=== PATIENT | female | born 1940 | race Caucasian/White ===

== ENCOUNTER 2018-09-02 20:54 | Emergency (ER) | payer OTHER ==
[~2018-09-02] VITALS: Ht 167.6 cm; Wt 77.1 kg
[2018-09-02 21:34] VITALS: Ht 167.6 cm; Wt 77.1 kg
[2018-09-02] MEDS ORDERED: AMLODIPINE BESY10 M2 PO (22:27)
[2018-09-02] MEDS ORDERED: ATENOLOL50 MG PO (22:27)
[2018-09-02] MEDS ORDERED: MON10 PO (22:27)
[2018-09-02] MEDS ORDERED: PAXIL10 MG PO (22:28)
[2018-09-02] MEDS ORDERED: METFORMIN HCL850 MG PO (22:28)
[2018-09-02] MEDS ORDERED: NAMENDA10 M2 PO (22:29)
[2018-09-02] MEDS ORDERED: LASIX20 MG PO (22:29)
[2018-09-02] MEDS ORDERED: LIPI10 PO (22:31)
[2018-09-03 00:45] VITALS: BP 119/53
== END 2018-09-03 00:45 | disposition home or self-care (01) ==
LOC: ED 20:54
DX: S80.02XA Contusion of left knee, initial encounter (principal); S80.01XA Contusion of right knee, initial encounter; S09.8XXA Other specified injuries of head, initial encounter; M19.90 Unspecified osteoarthritis, unspecified site; I10 Essential (primary) hypertension; E11.9 Type 2 diabetes mellitus without complications; E78.00 Pure hypercholesterolemia, unspecified; F41.9 Anxiety disorder, unspecified; Z98.890 Other specified postprocedural states; Z88.0 Allergy status to penicillin; W19.XXXA Unspecified fall, initial encounter; Y93.89 Activity, other specified; Y92.89 Other specified places as the place of occurrence of the external cause; Y99.8 Other external cause status
CPT/HCPCS: Q0092

== ENCOUNTER 2019-01-13 11:53 | Inpatient (IN) | payer OTHER ==
[~2019-01-13] VITALS: Ht 167.6 cm; Wt 62.3 kg
[~2019-01-13 11:53] MED LIST: AMLODIPINE BESY10 M2 PO; ATENOLOL50 MG PO; GLU850; LASIX20 MG PO; LIPI10 PO; MON10 PO; NAMENDA10 M2 PO; PAXIL10 MG PO
--- NOTE | 2019-01-13 12:14 | NUR ---
PT BIB[place]ard FROM HOME AFTER BEING FOUND ON [place] [facility]LO[facility] THIS AM AT APPROX 1100AM, PER DTR, PT HAS WORSEING DEMENTIA AND SHE'S NORMALLY CONFUSED. PT TRANSFERRED TO [facility] WITH MILD MOANING, NO OBVIOUS DEFORMITY NOTED, NO LEG SHORTENING SEEN, PER DTR, SHE'S FALLEN BEFORE SO HER HIP HURTS NORMALLY WHEN MOVING IN BED. PT AWAKE, ALERT TO NAME, PLACE AND SITUATION, DISORIENTED TO TIME AND DAY. PT FOLLWS SIMPLE COMMNANDS AND REPORTS MILD PAIN 2/10 TO LEFT HIP AREA. SKIN W/D/I WITH RED BRUISE NOTED TO RT ELBOW. RESP EVEN AND UNLABORED, ON RA @98%. ABD ROUND/SOFT, NT TO PALPATION. PT DENIES ANY SOB OR CP, NO NV/V/D. INCONTINENT TO URINE NOTED, WEARING ADULTS BRIEFS. PER DTR WHO IS AT BEDSIDE, REPORTS THAT SHE HAD SET AN APPT FOR TOMMORROW FOR AN EVAULTION FOR POSSIBLE HOSPICE AND OR PALLIATIVE CARE. DTR IS REQUESTING FULL LAB WORK TO BE DONE HERE IN ER ALONG WITH [facility]. ADVISED THAT OUR ER MD WILL EVAULATE AND PERFORM NECESSARY TESTS INDICATED. SAFETY PRECATIONS IN PLACE,WILL CONT TO MONITOR CLOSELY. PT AFEBRILE, 138/59.
[2019-01-13 13:25] LABS: BASOPHIL % 0.3 % (0-2); PLATELET COUNT 270 x10^3mcL (130-400)
[2019-01-13 13:27] LABS: RED CELL DISTRIBUTION WIDTH 16.4 % (11.5-14.5)
--- NOTE | 2019-01-13 13:47 | NUR ---
PT INCONTINENT WITH URINE, IN AND OUT CATH DONE WITH STERILE TECHNIQUE, DTR AT BEDSIDE, PT TOLERATED FAIRLY. URINE COLLECTED AND SENT FOR ANALYSIS. IV SL TO RT FA, PERIAREA CARE DONE, ADULT BRIEF APPLIED.
[2019-01-13 13:48] LABS: CALCIUM 9.3 mg/dL (8.5-10.1); CARBON DIOXIDE 24.9 mmol/L (21-32); CHLORIDE SERUM 107 mmol/L (98-107); GLUCOSE SERUM 120 mg/dL (74-106); POTASSIUM SERUM 5.1 mmol/L (3.5-5.1); SODIUM SERUM 141 mmol/L (136-145)
[2019-01-13 13:52] LABS: ALKALINE PHOSPHATASE 89 U/L (46-116); ALT/SGPT 14 U/L (14-59); AST/SGOT 16 U/L (15-37); BILIRUBIN TOTAL 0.3 mg/dL (0.20-1.00); HDL CHOLESTEROL 40 mg/dL (40-60); LIPASE 241 IU/L (73-393); TOTAL PROTEIN, SERUM 7.3 g/dL (6.4-8.2); TRIGLYCERIDES 141 mg/dL (<150)
[2019-01-13 13:53] LABS: ALBUMIN 3.3 g/dL (3.4-5.0); CHOLESTEROL 110 mg/dL (<200); CHOLESTEROL/HDL RATIO 2.8
[2019-01-13 13:54] LABS: FREE T4 1.34 ng/dL (0.76-1.46); FREE THYROXINE INDEX 3.1 ug/dL (1.4-4.5); T4(THYROXINE) 8.5 ug/dL (4.7-13.3)
--- NOTE | 2019-01-13 14:00 | NUR ---
PT TO XRAY VIA [facility]YA.
[2019-01-13 14:08] LABS: T3 TOTAL 0.91 ng/mL
[2019-01-13 14:51] LABS: UA SPECIFIC GRAVITY <=1.005 (1.005-1.035); microscopic required? YES; urine erythrocyte NEGATIVE (NEGATIVE)
--- NOTE | 2019-01-13 15:11 | NUR ---
DR NIETO IN ROOM FOR EXAM.
[2019-01-13] MEDS ORDERED: SEROQUEL25 MG PO (15:41)
--- NOTE | 2019-01-13 16:20 | NUR ---
SPOKE WITH NAKUL FROM [facility], UPDATED HIM ON PT'S STATUS, LABS AND VITALS. PER THIS CONVERSATION, HE STATES PT WILL MOST LIKELY BE TRANSFERRED [place] [facility] [place] I REALTED THIS INFO TO DTR BUT REFUSES PT TO BE TRANSFERRED TO THAT HOSPITAL.
--- NOTE | 2019-01-13 17:04 | NUR ---
PT INCREASINGLY CONFUSED AND AGITATED, DR PARHAM INFORMED, MEDICATED ORDERED.
--- NOTE | 2019-01-13 17:04 | NUR ---
DR PARHAM AT BEDSIDE TO SPEAK WITH DTR REGARDING TRANSFER.
--- NOTE | 2019-01-13 18:10 | NUR ---
PT RESTLESS, MOANING WITH KIERAN LEG PAIN, MEDICATED ORDERED. DTR AT BEDSIDE.
[2019-01-13 19:20] LABS: AMPHETAMINE QUAL UR NONE DETECTED (See below)
--- NOTE | 2019-01-13 19:39 | NUR ---
PT CHANGED AT THIS TIME, CLEAN AND DRY AND PLACED IN A GOWN.
--- NOTE | 2019-01-13 21:30 | NUR ---
PT URINATED. CHANGED AT THIS TIME.
--- NOTE | 2019-01-13 21:45 | NUR ---
PTS DAUGHTER EDUCATED ON STATUS OF ROOM AND NEED FOR SITTER. VERBALIZED UNDERSTANDING.
--- NOTE | 2019-01-13 22:02 | NUR ---
WAS TOLD THAT ROOM IS BEING CLEANED.
--- NOTE | 2019-01-13 22:31 | NUR ---
REPORT CALLED AND GIVEN TO CONRAD GALAN.
--- NOTE | 2019-01-13 22:56 | NUR ---
Pt. received from ER via gurney accompanied by RN. Pt. resting in bed with eyes closed, arousable with verbal stimuli, a/o x2, no c/o pain, h/a or dizziness. No SOB and pt. on RA. Pt. is Tele #6 with B/P 132/59, a NSR at 73 with an elevated T Wave with palpable pulses on BLE and BUE and no edema noted. Pt. has no trouble swallowing with a good appepite and no weight loss, Pt. does not use dentures, eharing aids or glasses. Lung Sounds are CTA and pt. is on RA w/ O2 sat at 96%. Pt. last BM noted to be on 01/12 and bowel sounds normoactive. Pt. is incontinent at times both bowel and bladder, pt. last voided 01/13 and was normal. Pt. is bed fast, unable to get up or assist with transfer, has fallen within the last 3 months. Skin villalta, pt. has redness noted on bilateral heels, scattered ecchymosis noted on BUE, and a healing wound in the sacral region of the back. Pt. currently resting in bed, with family at bedside, call light placed within reach, bed set at lowest position, will continue to monitor.
--- NOTE | 2019-01-13 23:15 | NUR ---
Dressing on sacral wound changed, pt. tolerated procedure well. Pt. currently resting in bed, no signs of SOB or distress, call light placed within reach, will continue to monitor.
[2019-01-14 00:10] VITALS: BP 132/59
--- NOTE | 2019-01-14 03:11 | NUR ---
Pt. c/o of pain and is becomming restless as per caregiver at bedside. Medicated pt. w/ 2 Tylenol 325 mg PO. Will continue to monitor pt.
[2019-01-14 05:44] VITALS: BP 107/56
--- NOTE | 2019-01-14 06:41 | NUR ---
Pt. current resting in bed with caregiver at [facility]. As per family, day care attendant will leave at 7a and another caregiver to return at 1100. Sitter was at bedside until 0500. Pt. was restless at times throughout the night as per caregiver. Pt. mei, home med was restarted at the hospital and made q8h on-call, Dr. French. Pt. complained of pain once and medicated pt. with acetaminophen 325mg x2 and pt. tolerated it well. Pt. currently resting in bed, call light placed within reach, bed set at lowest position, will continue to monitor.
[2019-01-14 06:54] LABS: BASOPHIL % 0.6 % (0-2); PLATELET COUNT 227 x10^3mcL (130-400)
[2019-01-14 07:18] LABS: CALCIUM 8.8 mg/dL (8.5-10.1); CARBON DIOXIDE 25.5 mmol/L (21-32); CHLORIDE SERUM 106 mmol/L (98-107); CREATININE SERUM 0.8 mg/dL (0.6-1.0); GLUCOSE SERUM 105 mg/dL (74-106); MAGNESIUM 1.5 mg/dL (1.8-2.4); POTASSIUM SERUM 4.7 mmol/L (3.5-5.1); SODIUM SERUM 141 mmol/L (136-145)
--- NOTE | 2019-01-14 07:48 | NUR ---
RECEIVED PATIENT FROM CONRAD DUDLEY AND CONRAD GALAN. PATIENT IN BED, MILD COMPLAINTS OF PAIN DUE TO REPOSITIONING. SITTER AT BED, FEEDING PATIENT BREAKFAST. TOLERATING. WILL AWAIT FOR CARE TEAM TO COME IN AND SPEAK WITH PATIENT. CALL LIGHT IN REACH AT THIS TIME.
[2019-01-14 09:14] VITALS: BP 121/54
--- NOTE | 2019-01-14 10:12 | NUR ---
DR KERR AND DR CORRALES IN TO SPEAK WITH PATIENT AND TWO DAUGTHERS. SPOKE TO THEM AT LENGTH ABOUT PLAN OF CARE FOR TODAY, CONCERNS ADDRESSED. ORDERED CT SCAN OF HEAD, PT, AND SS FOR POSSIBLE HOSPICE PLACEMENT. SITTER AT BEDSIDE. CALL LIGHT IN REACH.
[2019-01-14 13:12] VITALS: BP 140/66
--- NOTE | 2019-01-14 13:40 | NUR ---
PATIENT SENT DOWN TO CT HEAD AND RETURNED TO BED. PATIENT ALSO WAS EVAL AND SEEN BY NADIRA CALI. CT HEAD RESULTS IN, DR KERR IN TO SPEAK WITH PATIENT AND FAMILY. TELENEURO ORDERED. WILL PREPARE FOR TELE NEURO.
--- NOTE | 2019-01-14 13:45 | NUR ---
CALLED TELENEURO FOR TELENEURO CONSULT. SPOKE WITH HEATHRE. SHE STATED TO SEND H&P TO FAX [phone]. TELENEURO MACHINE ALREADY SET UP IN PT'S ROOM.
--- NOTE | 2019-01-14 15:09 | NUR ---
DR. CORRALES, DR. KERR, AND DR CROWE IN PT'S ROOM AND SPOKE WITH PATIENT AND PT'S DAUGHTER REGARDING NEED FOR TRANSFER TO HIGHER LEVEL OF CARE. PT'S UBALDO STATED SHE WILL CALL HER SISTER AND WILL INFORM DR. CORRALES ON THEIR DECISION.
--- NOTE | 2019-01-14 15:38 | NUR ---
TELENEURO CONSULT COMPLETED. NEUROLOGIST CONSULT RECOMMENDS PATIENT TO BE SEEN BY NEUROGSURGEON. DR CORRALES AND DR KERR NOTIFIED. CARE TEAM SPOKE WITH FAMILY AND FAMILY AGREED TO TRANSFER TO HIGHER LEVEL OF CARE, TO [facility]. DIRECTOR PUBLIC POLICY NOTIFIED. PATIENT IN ROOM WITH FAMILY, CALL LIGHT IN REACH.
[2019-01-14 16:52] VITALS: BP 127/85
--- NOTE | 2019-01-14 18:17 | NUR ---
PATIENT IN BED AT THIS TIME. MODERATE COMPLAINTS OF L KNEE PAIN 09/15. PRN NORCO PO ADMINISTERED. WILL ENDORSE TO ONCOMING NURSE ABOUT TRANSFER TO HIGHER LEVEL OF CARE. DAUGHTER AT BEDSIDE. CALL LIGHT IN REACH AT THIS TIME.
[2019-01-14 20:04] VITALS: BP 128/57
--- NOTE | 2019-01-14 20:08 | NUR ---
PATIENT RECEIVED IN BED AWAKE,ALERT AND ORIENTED X2 ONLY, SPEECH CLEAR, MOOD TENSE, FAMILY AT BEDSIDE. BREATHING EVEN AND UNLABORED BS CLEAR DIMINISHED BASES, FOUND ON ROOM AIR SAT 95%,DENIED SOB. DENIED CHEST PAINS, HR=72BPM,TELE#6 SR, RHYTHM REGULAR. IV SITE NO SIGN OF INFILTRATION. NO OBVIOUS SIGN OF DISTRESS NOR PAIN. PATIENT AND FAMILY INFORMED ABOUT POC THIS SHIFT.SAFETY/FALL PRECAUTIONS MAINTAINED.WILL CONTINUE TO MONITOR.
--- NOTE | 2019-01-14 22:30 | NUR ---
PATIENT GETTING AGITATED AND VERBALIZING THAT SHE WANTED TO GET OOB AND LEAVE, WANTS HER SCD REMOVED ANDIT MAKES HER UNCOMFORTABLE, PATIENT INFORMED ABOUT ITS PURPOSE AND ACTION,REMOVED FOR NOW PER FAMILY REQUEST. INFORMED THEM THAT WE WILL TRY TO PLACED IT BACK LATER, AND THEY AGREED.WILL CONTACT DR JUAREZ FOR ANXIETY MED ORDER.
--- NOTE | 2019-01-14 23:06 | NUR ---
PATIENTT MEDICATED WITH XANAX FOR ANXIETY. WILL MONITOR EFFETIVENESS.
--- NOTE | 2019-01-15 00:29 | NUR ---
PATIENT CALMER THIS TIME, TURNED AND REPOSITIONED,INCONTINENT OF UA CLENED AND KEPT DRY, OPTIFOAAM CHANGED.
--- NOTE | 2019-01-15 02:18 | NUR ---
PER BIOMECHANICAL ENGINEER ,PATIENT IS GETTING ANXIOUS AGAIN, CHECKED WAS TEMPTING TO REMOVE LINE, PAGED DR GAMBINO AND RESPONDED BACK, INFORMED HIM ABOUT ABSERVATION. AWAITING ORDER.
--- NOTE | 2019-01-15 02:49 | NUR ---
MEDICATED WITH ATIVAN 1 MG IVP FOR ANXIETY. WILL MONITOR EFFECTIVENESS.
--- NOTE | 2019-01-15 05:58 | NUR ---
INCONTINENT OF URINE, CLEANED AND KEPT DRY. TURNED THIS TIME.
[2019-01-15 06:08] VITALS: BP 139/58
--- NOTE | 2019-01-15 06:32 | NUR ---
PATIENT STARTED RESTING AND SLEEPING AFTER ATIVAN IVP GIVEN, WAS TURNED Q2HRS, REMAINED CONFUSED AND DISORIENTED. CAREGIVER AT BEDSIDE ALL NIGHT. SAFETY/FALL PRECAUTIONS MAINTAINED. WILL ENDORSE CONTINUITY OF CARE TO INCOMING NURSE.
[2019-01-15 06:36] LABS: BASOPHIL % 0.5 % (0-2); PLATELET COUNT 240 x10^3mcL (130-400)
[2019-01-15 06:40] LABS: CALCIUM 8.4 mg/dL (8.5-10.1); CARBON DIOXIDE 21.9 mmol/L (21-32); CHLORIDE SERUM 110 mmol/L (98-107); CREATININE SERUM 0.6 mg/dL (0.6-1.0); GLUCOSE SERUM 86 mg/dL (74-106); MAGNESIUM 1.7 mg/dL (1.8-2.4); PHOSPHOROUS 3.3 mg/dL (2.5-4.9); POTASSIUM SERUM 4.2 mmol/L (3.5-5.1); SODIUM SERUM 142 mmol/L (136-145)
[2019-01-15 06:49] LABS: RED CELL DISTRIBUTION WIDTH 16.8 % (11.5-14.5)
--- NOTE | 2019-01-15 07:34 | NUR ---
RECEIVED PATIENT FROM CONRAD HERNDON. PATIENT SEEN SLEEPING IN BED. NO SIGNS OF PAIN, DISCOMFORT, OR AGITATION AT THIS TIME. SITTER AT BEDSIDE FOR THIS AM. DR WILLIAMSHIRA IN TO SEE PATIENT, ADJUSTED MEDICATIONS. WILL AWAIT FOR CARE TEAM TO COME EVALUATE AND WILL WAIT FOR REPEAT CT HEAD TODAY. CALL LIGHT IN REACH.
[2019-01-15 09:00] VITALS: BP 138/68
--- NOTE | 2019-01-15 12:10 | NUR ---
DAUGHTERS AND CAREGIVER AT BEDSIDE. UPDATED FAMILY ABOUT PLAN OF CARE AND STILL WAITING FOR TRANSFER. ALL QUESTIONS ADDRESSED AT THIS TIME. CALL LIGHT IN REACH.
[2019-01-15 16:21] VITALS: BP 138/63
--- NOTE | 2019-01-15 17:13 | NUR ---
NOTIFIED BY LAB THAT PATIENT IS POSITIVE FOR E COLI AND MDRO IN THE URINE. NOTIFIED CHARGE NURSE TRAN AND DR CORRALES. ALSO BOTH AWARE THAT E COLI IS SUSCEPTIBLE TO PO LEVAQUIN. WILL INFORM FAMILY MEMBER AT THIS TIME AND PLACE PATIENT ON CONTACT ISOLATION.
--- NOTE | 2019-01-15 18:19 | NUR ---
SPOKE WITH PATIENT AND FAMILY ABOUT POSITIVE CULTURE OF E COLI. TAUGHT FAMILY ABOUT CONTACT PRECAUTIONS AND QUESTIONS ADDRESSED. FAMILY VERBALIZED UNDERSTANDING OF DONNING AND REMOVING GOWN AND GLOVES FOR PATIENT. STILL AWAITING TRANSFER TO HIGHER LEVEL OF CARE. WILL ENDORSE TO ONCOMING NURSE. CALL LIGHT IN REACH, FAMILY AT BEDSIDE.
[2019-01-15 20:00] VITALS: BP 132/59
--- NOTE | 2019-01-15 20:00 | NUR ---
PATIENT RECEIVED LYING IN BED AWAKE,ALERT AND ORIENTED X2, GET PARANOID AT TIMES, SPEECH CLEAR, CONFUSED AND DISORIENTED. BREATHING EVEN AND UNLABORED BS CLEAR DIMINISHED BASES, FOUND ON ROOM AIR SAT 96%. DENIED CHEST PAINS, HR=68BPM, TELE#6 SR. IV SITE LFA PATENT AND INTACT SITE CLEAR, NO SIGN OF INFILTRATION. PATIENT DENIED PAIN THIS TIME. FAMILY AT BEDSIDE, INFORMED AND UPDATED ABOUT TX TO HLOC PLAN. SUPINE THIS TIME, INFORMED PATIENT AND FAMILY ABOUT TURNING REGIMEN. SAFETY/FALL PRECAUTIONS OBSERVED. CIONTACT ISOLATION FOR ESBL/MDRO UA OBSERVED. WILL CONTIBNUE TO MONITOR.
--- NOTE | 2019-01-15 21:06 | NUR ---
SCHEDULED MEDS ADMINISTERED THIS TIME, PATIENT AND FAMILY INFORMED ABOUT EACH MEDS ACTIONS AND PURPOSE PRIOR. RAISED HEAD OF BED UP DURING ADMINISTRATION, TOOK PILLS WELL.
--- NOTE | 2019-01-15 22:10 | NUR ---
DR GAMBINO PAGED GATED, INFORMED ABOUT MAG LEVEL OF 1.7. NOT REPLACED.
--- NOTE | 2019-01-15 23:27 | NUR ---
PATIENT GETTING ANXIOUS AND AGITATED AGAIN,ATTEMPTING TO REMOVED IV.PAGE GATED DR GAMBINO TO INFORMED HIM OF ABOVE.
--- NOTE | 2019-01-15 23:42 | NUR ---
MAG OXIDE 1 TAB PO GIVEN FOR MAG LEVEL 1.7, ATIVAN 0.5 MG IVP GIVEN FOR ANXIETY AND AGITATION. WILL RE-ASSESS EFFECTIVENESS.
[2019-01-16 05:03] VITALS: BP 145/63
--- NOTE | 2019-01-16 05:20 | NUR ---
BLOOD SUGAR WAS 64, REPEATED WAS 66, PATIENT DROWSYPROTOCOL INITIATED, D50 1 AMP ADMINISTERE IVP, WILL LATRICE GAMBINO.
--- NOTE | 2019-01-16 06:03 | NUR ---
CHRIS FROM [facility] TRANSFER DEPARTMENT CALLED AND UPDATED WITH TRANSFER PLAN, STATED THAT NO AVAILABLE TRANFER ACCEPTING PHYSICIAN YET. DR GAMBINO AND CHARGE KATHI HOLT MADE AWARE.
[2019-01-16 06:11] LABS: BASOPHIL % 0.7 % (0-2); PLATELET COUNT 212 x10^3mcL (130-400)
[2019-01-16 06:18] LABS: CALCIUM 8.5 mg/dL (8.5-10.1); CARBON DIOXIDE 25.8 mmol/L (21-32); CHLORIDE SERUM 109 mmol/L (98-107); CREATININE SERUM 0.6 mg/dL (0.6-1.0); GLUCOSE SERUM 227 mg/dL (74-106); MAGNESIUM 1.7 mg/dL (1.8-2.4); PHOSPHOROUS 2.9 mg/dL (2.5-4.9); POTASSIUM SERUM 3.6 mmol/L (3.5-5.1); SODIUM SERUM 143 mmol/L (136-145)
--- NOTE | 2019-01-16 06:18 | NUR ---
PATIENT SLEPT OFF AND ON DURING THE SHIFT, WAS TURNED Q 2HRS AND CLEANED, KEPT DRY. NO COMPLAINTS MADE. BLOOD SUGAR WAS ON THE LOW 60'S THIS AM,D50 GIVEN AND RE CHECKED WAS 174 MORE ALERT. IV SITE TO RT HAND PATENT AND INTACT, STOCKENETT APPLIED TO PREVENT PATIENT FROM PULLING LINE. SAFETY/FALL PRECAUTIONS MAINTAINED. CONTACT ISOLATION FOR E-COLI/MDRO UA OBSERVED AND MAINTAINED. WILL ENDORSE CONTINUITY OF CARE TO INCOMING NURSE.
[2019-01-16 07:11] LABS: RED CELL DISTRIBUTION WIDTH 16.4 % (11.5-14.5)
--- NOTE | 2019-01-16 07:19 | NUR ---
BEDSIDE HANDS OFF AND INTRODUCTION PERFORMED WITH INCOMING NURSE CHANTAL/ALLAN.
--- NOTE | 2019-01-16 08:00 | NUR ---
RECEIVED REPORT FROM AT RISK PARAPROFESSIONAL NURSE. PT LYING IN BED SITTER AT BEDSIDE. IV ON R HAND PATENT, INTACT, NO REDNESS OR PAIN NOTED. DENIES ANY PAIN AT THIS TIME. A&O X 3 EPISODES OF CONFUSION. STABLE IN NO DISTESS AT THIS TIME. BED IN LOW POSITION. SAFETY PRECAUTIONS IN PLACE. ALL QUESTIONS AND CONCERNS ADDRESSED. WILL CONTINUE TO MONITOR.
[2019-01-16 09:00] VITALS: BP 131/63
--- NOTE | 2019-01-16 10:00 | NUR ---
ADMINISTERED PRESCRIBED MED TO PT. NO ADVERSE EFFECTS NOTED. PT TOLERATED WELL. WILL CONTINUE TO MONITOR.
[2019-01-16 10:25] VITALS: Ht 167.6 cm; Wt 62.3 kg
--- NOTE | 2019-01-16 11:30 | NUR ---
GLUCOSE 64 OFFERED APPLE JUICE TO PT. NO INSULIN COVERAGE NEEDED AT THIS TIME DAGMAR SLIDING SCALE. ALL NEEDS ATTENDED TO AT THIS TIME.
[2019-01-16 12:40] VITALS: BP 106/61
--- NOTE | 2019-01-16 12:45 | NUR ---
PT SITTING UP IN BED EATING LUNCH. TOLERATING DIET WELL. DAUGHTER AND VEHICLE MONITOR TECHNICIAN AT BEDSIDE. NO APPARENT DISTRESS NOTED WILL CONTINUE TO MONITOR.
--- NOTE | 2019-01-16 13:16 | NUR ---
PATIENT C/O BILATERAL LEG PAIN AT THIS TIME. PATIENT MEDICATED WITH TYLENOL. PATIENT TOLERATED MEDICATION WELL. NO APPARENT ADVERSE EFFECTS NOTED. ALL NEEDS ATTENDED TO. WILL CONTINUE TO MONITOR
--- NOTE | 2019-01-16 13:32 | NUR ---
PHYSICAL THERAPY DAILY NOTES CO-SIGN All documentation done by the Tier Truck Driver for 01/16/19 has been reviewed. I agree with the documentation. Reviewed/Co-Signed by: Candelaria Tran PT Documentation Done by: PATRICIO FUNG PTA
--- NOTE | 2019-01-16 14:30 | NUR ---
PT AGITATED AT THIS TIME. ADMINISTERED ATIVAN IVP. NO ADVERSE REACTIONS NOTED. WILL CONTINUE TO MONITOR.
--- NOTE | 2019-01-16 16:30 | NUR ---
BLOOD GLUCOSE LEVEL 97 NO INSULIN COVERAGE NEEDED PER SLIDING SCALE. WILL CONTINUE TO MONITOR.
[2019-01-16 18:44] VITALS: BP 118/45
--- NOTE | 2019-01-16 19:02 | NUR ---
PT LYING IN BED IN NO APARENT DISTRESS IV INFUSING ON RIGHT HAND, PATENT, NO REDNESS OR EDEMA NOTED. ALL QUESTIONS AND CONCERNS ADDRESSED. CALL LIGHT WITHIN REACH ENDORSING CARE TO NIGHT NURSE.
--- NOTE | 2019-01-16 19:15 | NUR ---
RECIEVED PT RESTING IN BED WITH NO ACUTE DISTRESS NOTED AT THIS TIME, FAMILY AT BEDSIDE, ASSESMENT PERFORMED AT THIS TIME, PT IS A/OX2 TO PERSON AND SITUATION, PT DENIESS ARREDONDO OR DIZZINESS, PT DENIES SOB OR PAIN, TELE 6 NSR, IV TO THE R HAND INFUSING NS AT 50 ML PER HOUR, AIR MATRESS IN PLACE, SAFETY PRECAUTIONS IN PLACE, WILL CONTINUE TO MONITOR
[2019-01-16 20:30] VITALS: BP 121/53
--- NOTE | 2019-01-16 22:10 | NUR ---
PT RESTING IN BED WITH NO ACUTE DISTRESS, NO SOB OR PAIN NOTED AT THIS TIME, SITTER AT BEDSIDE, RESPIRATIONS EVEN AND UNLABORED, SAFETY PRECAUTIONS IN PLACE, WILL CONTINUE TO MONITOR
--- NOTE | 2019-01-17 00:30 | NUR ---
PT RESTING COMFORTABLY, NO ACUTE DISTRESS AT THIS TIME, SITTER AND BANKING ANALYST AT BEDSIDE, SAFETY PRECAUTIONS IN PLACE, WILL CONTINUE TO MONITOR
--- NOTE | 2019-01-17 05:00 | NUR ---
PT RESTED COMFOTABLY THROUGH THE NIGHT WITH NO ACUTE DISTRESS, PT CAREGIVER AND SITTER REMAINED AT BEDSIDE THROUGH SHIFT, PT HAD NO EPISODES OF SOB OR PAIN THROUGH EVENING, ALL PT NEEDS ATTENDED TO SAFETY PRECAUTIONS IN PLACE, WILL CONTINUE TO MONITOR
--- NOTE | 2019-01-17 05:30 | NUR ---
PT BLOOD SUGAR 72, ORANGE JUICE PROVIDED, PT IS ASYMPTOMATIC. WILL CONTINUE TO MONITOR
[2019-01-17 05:43] VITALS: BP 121/57
[2019-01-17 06:44] LABS: CALCIUM 8.2 mg/dL (8.5-10.1); CARBON DIOXIDE 25.4 mmol/L (21-32); CHLORIDE SERUM 112 mmol/L (98-107); CREATININE SERUM 0.8 mg/dL (0.6-1.0); GLUCOSE SERUM 84 mg/dL (74-106); MAGNESIUM 1.8 mg/dL (1.8-2.4); PHOSPHOROUS 3.6 mg/dL (2.5-4.9); SODIUM SERUM 144 mmol/L (136-145)
[2019-01-17 07:15] LABS: BASOPHIL % 0.7 % (0-2); PLATELET COUNT 195 x10^3mcL (130-400)
--- NOTE | 2019-01-17 07:20 | NUR ---
RECEIVED REPORT FROM NIGHT NURSE PT ASLEEP IN NO APARENT DISTRESS. BREATHING EQUAL AND UNLABORED. ASSESSED AND DOCUMENTED.IV R HAND INFUSING 50 ML INTACT, NO REDNESS OR SWELLING NOTED. SITTER AND RN LIAISON AT BEDSIDE . SAFETY PRECAUTIONS IN PLACE. WILL CONTINUE TO MONITOR.
[2019-01-17 07:31] LABS: RED CELL DISTRIBUTION WIDTH 16.1 % (11.5-14.5)
[2019-01-17 09:10] VITALS: BP 101/50
--- NOTE | 2019-01-17 09:34 | NUR ---
PT LYING IN BED TALKING WITH CAREGIVER IN NO APPARENT DISTRESS. PT DENIES PAIN AT THIS TIME. SCHEDULED MEDS GIVEN PER JUN. PT TOLERATED WELL NO ADVERSE AFFECTS NOTED. BED IN LOW POSITION ALL QUESTIONS AND CONCERNS ADDRESSED. WILL CONTINUE TO MONITOR.
--- NOTE | 2019-01-17 12:17 | NUR ---
PT SITTING UP WITH PT. FAMILY AT BEDSIDE. BLOOD SUGAR 66 OFFERED APPLE JUICE. PT IN NO APPARENT DISTRESS. ALL NEEDS MET AT THIS TIME. WILL CONTINUE TO MONITOR.
--- NOTE | 2019-01-17 12:52 | NUR ---
PT SERVED LUNCH TOLERATING DIET WELL. CAREGIVER AT BEDSIDE. ALL NEEDS ATTENDED TO. WILL CONTINUE TO MONITOR.
[2019-01-17 13:52] VITALS: BP 107/55
--- NOTE | 2019-01-17 14:24 | NUR ---
PT LYING IN BED TALKING WITH CAREGIVER. PT IN NO APPARENT DISTRESS. ADMINISTERED SCHEDULED MED PER JUN. PT TOLERATED WELL NO ADVERSE AFFECTS NOTED. WILL CONTINUE TO MONITOR. CALL LIGHT WITHIN REACH BED IN LOW POSITION.
--- NOTE | 2019-01-17 16:20 | NUR ---
PT LYING IN BES REASTING. CAREGIVER AT BEDSIDE. BLOOD SUGAR CHECK 78 NO INSULIN NEEDED PER SLIDING SCALE. ALL QUESTION AND CONCERNS ADDRESSED. WILL CONTINUE TO MONITOR.
[2019-01-17 18:43] VITALS: BP 112/50
--- NOTE | 2019-01-17 18:46 | NUR ---
PT SITTING IN BED WITH AT BEDSIDE TALKING. IV INFUSING PATENT AND INTACT NO EDEMA OR REDNESS NOTED. BREATHING UNLABORED EQUAL CHEST RISE 97% ON RA. ALL QUESTIONS AND CONCERNS ADDRESSED AT THIS TIME. BED IN LOW POSITION. WILL ENDORSE CARE TO SKATE HOP NURSE.
--- NOTE | 2019-01-17 19:20 | NUR ---
IV ACCIDENTLY PULLED OUT CATHETER INTACT, NO REDNESS OR SWELLING NOTED. ALL NEEDS ATTENDED TO.ASSET PROTECTION ASSISTANT NURSE MADE AWARE.
--- NOTE | 2019-01-17 19:30 | NUR ---
PT RECEIVED FROM DAY NURSE. PT RESTING IN BED AT THIS TIME. DENIES PAIN OR DISCOMFORT. A/O X3, REORIENTED TO SITUATION. TELE 6, NSR, DENIES CP, NV, DIZZINESS, OR PALPATATIONS. PALPABLE PULSES, EDEMA NOTED TO BLE, ELEVATED WITH PILLOWS. BREATHING E/U ON RA. DENIES SOB. PT BED BOUND, TURNING AND REPOSITIONING Q2. ULCER NOTED TO SACRUM, COVERED WITH OPTIFOAM CDI. ECCYMOSIS NOTED TO BUE AND BLE. NO IV ACCESS AT THIS TIME. BE AT LOWEST POSITION. CALL LIGHT WITHIN REACH. WILL CONTINUE TO MONITOR.
[2019-01-17 20:50] VITALS: BP 118/61
--- NOTE | 2019-01-18 | NUR ---
PT RESTING IN BED AT THIS TIME. DENIES PAIN OR DISCOMFORT AT THIS TIME. BREATHING E/U ON RA. NO SIGNS OF ACUTE DISTRESS AT THIS TIME. BED AT LOWEST POSITION. CALL LIGHT WITHIN REACH. WILL CONTINUE TO MONITOR.
--- NOTE | 2019-01-18 03:11 | NUR ---
PT COMPLAINING OF 6/10 L HIP PAIN. MEDICATED WIT PRN NORCO. WILL CONTINUE TO MONITOR.
[2019-01-18 05:38] VITALS: BP 144/67
--- NOTE | 2019-01-18 06:20 | NUR ---
PT RESTING IN BED AT THIS TIME. DENIES PAIN OR DISCOMFORT. BREATHING E/U ON RA. ALL NEEDS AND CONCERNS ADDRESSED THIS SHIFT. BED AT LOWEST POSITION. CALL LIGHT WITHIN REACH. WILL ENDORSE TO DAY NURSE.
--- NOTE | 2019-01-18 07:05 | NUR ---
RECEIVED REPORT FROM NIGHT NURSE PT LYING IN BED ASLEEP IN NO APPARENT DISTRESS. CHEST RISE EQUAL AND UNLABORED. SITTER AT BEDSIDE AND SAFETY PRECAUTIONS IN PLACE. ALL NEEDS MET AT THIS TIME. WILL CONTINUE TO MONITOR.
--- NOTE | 2019-01-18 09:00 | NUR ---
PT LYING IN BED AWAKE IN NO APARENT DISTRESS. TOLERATED BREAKFAST WELL. ALL QUESTIONS AND CONCERNS ADDRESSED AT THIS TIME. LAUNDRY TECHNICIAN AT BEDSIDE. WILL CONTINUE TO MONITOR.
[2019-01-18 09:22] VITALS: BP 129/53
--- NOTE | 2019-01-18 12:53 | NUR ---
PT LYING IN BED TALKING WITH CAREGIVER. BLOOD GLUCOSE 78. NO INSULIN NEEDED PER SLIDING SCALE. PT DENIES ANY PAIN AT THIS TIME. SAFETY PRECAUTIONS FOLLOWED. CAREGIVER AT BEDSIDE WILL CONTINUE TO MONITOR.
--- NOTE | 2019-01-18 13:02 | NUR ---
SPOKE WITH DR KERR AND CLARIFIED ORDER FOR DC TO [facility]. PER DR KERR TO CANCEL ORDER TO DC TO [facility] AND ENTER ORDER FOR SNF. PER DR KERR PATIENT CAN BE DC TO SNF WHEN BED AVAILABLE. SPOKE WITH TESSY FROM CASE MANAGEMENT AND SHE SAID THAT IF NO SNF CALLED BACK YET WITH RE: ACCEPTING PATIENT, CASE MANAGEMENT WILL FOLLOW UP TOMORROW. RECEIVED CALL FROM LAZARA AT [facility] WHO REQUESTED UPDATES ON SNF TRANSFER. LAZARA MADE AWARE OF NO SNF AVAILABLE AT THIS TIME. ATTENDING NURSE CHANTAL MADE AWARE.
--- NOTE | 2019-01-18 14:55 | NUR ---
PT UP IN BED TALKING WITH DAUGHTER AND AT BEDSIDE. ALL NEEDS ATTENDED TO. WILL CONTINUE TO MONITOR.
[2019-01-18 15:30] VITALS: BP 111/53
--- NOTE | 2019-01-18 16:54 | NUR ---
ADMINISTERED ATIVAN IVP PER DR ORDERS FOR AGITATION. DAUGHTER AND AT BEDSIED. ALL SAFETY PRECAUTIONS IN PLACE. WILL CONTINUE TO MONITOR.
--- NOTE | 2019-01-18 17:56 | NUR ---
PT SITTING IN BED EATING DINNER AND TALKING WITH FAMILY. TOLERATING DIET WELL IN NO APPARENT DISTRESS. WILL CONTINUE TO MONITOR.
[2019-01-18 18:26] VITALS: BP 115/58
--- NOTE | 2019-01-18 18:31 | NUR ---
PT LYING IN BED IN NO APARENT DISTRESS. PT DENIES PAIN OR SOB. IV INTACT INFUSING NO EDEMA OR REDNESS NOTED. ALL NEEDS ATTENDED TO WILL ENDORSE CARE TO PEST LOCATOR NURSE.
--- NOTE | 2019-01-18 19:10 | NUR ---
REPORT RECEIVED FROM DAY SHIFT RN. PATIENT WAS SEEN RESTING COMFORTABLY IN BED. ASLEEP, BUT EASILY AROUSBLE BY VERBAL STIMULI. DAUGHTER, KWASI, AT BEDSIDE. NO DISTRESS NOTED. BREATHING EVEN AND UNLABORED ON ROOM AIR. NO SOB OR RESP DISTRESS NOTED. IV TO THE RFA INFUSING WELL. PATENT AND INTACT. NO REDNESS OR SWELLING NOTED. TELE#6, NSR. DENIES CHEST PAIN/PRESSIRE. NO C/O PAIN. ECCYMOSIS NOTED TO BUE AND BLE. DISCOLORATION TO BILATERAL HEELS. OPIFOAM IN PLACE TO SACRAL-COCCYX, CDI. CONTACT PRECAUTIONS IN PLACE. BED IS LOCKED AND IN THE LOWEST POSITION. SIDE RAILS UP X2. CALL LIGHT IS WITHIN REACH. WILL CONTINUE TO MONITOR.
[2019-01-18 20:51] VITALS: BP 131/64
--- NOTE | 2019-01-18 23:23 | NUR ---
C/O 7/10 LEG PAIN BILATERALLY. PRN NORCO ADMINISTERED PRESCRIBED. MED EDUCATION GIVEN. NO DISTRESS NOTED. NO S/S OF ASPIRATION. CAREGIVER AND SITTER AT BEDSIDE. BREATHING EVEN AND UNLABORED ON ROOM AIR. SAFETY MEASURES IN PLACE. CALL LIGHT IS WITHIN REACH. WILL CONTINUE TO MONITOR.
--- NOTE | 2019-01-19 01:40 | NUR ---
RESTING IN BED WITH EYES CLOSED. NO DISTRESS NOTED. BREATHING EVEN AND UNLABORED ON ROOM AIR. NO SOB OR RESP DISTRESS NOTED. NO S/S OF PAIN NOTED. IVF INFUSING WELL. SAFETY MEASURES IN PLACE. CAREGIVER AT BEDSIDE. CALL LIGHT IS WITHIN REACH. WILL CONTINUE TO MONITOR.
[2019-01-19 04:37] VITALS: BP 117/52
--- NOTE | 2019-01-19 05:56 | NUR ---
BS 71. WILL GIVE WITH JUICE. NO DISTRESS NOTED. DR CORRALES IN TO SEE PATIENT. UPDATED DR ON SNF PLACEMENT STATUS.
--- NOTE | 2019-01-19 06:05 | NUR ---
RESTED IN LONG INTERVALS THROUGHOUT THE NIGHT. NO ACUTE CHANGES NOTED. BREATHING EVEN AND UNLABORED ON ROOM AIR. NO SOB NOTED. DENIES CHEST PAIN/PRESSURE. C/O PAIN X1. MEDICATED WITH NORCO WITH GOOD RELIEF. IVF INFUSING WELL. PATENT AND INTACT. FLUSHED WELL. SITTER AT BEDSIDE. COMFORT AND SAFETY MEASURES IN PLACE. CALL LIGHT IS WITHIN REACH. WILL ENDORSE CARE TO DAY SHIFT RN.
--- NOTE | 2019-01-19 07:30 | NUR ---
RECEIVED PATIENT RESTING IN BED AWAKE/ALERT, DOESN'T WANT NURSE TO TOUCH OR LIFT INFORM PATIENT NEED TO ASSESS PATIENT AND MAKING SURE EVERYTHING OKAY. TELE #6 NSR W/ HR 60 NOTED, IV TO RFA INTACT AND INFUSING, NOTED BLOOD STAIN ON DRESSING NO LEAKING NOTED. SITTER REMAIN AT BEDSIDE.
[2019-01-19 10:04] VITALS: BP 115/58
--- NOTE | 2019-01-19 10:10 | NUR ---
PATIENT RESTING IN BED AWAKE/ALERT CONFUSED KEEP ASKING "WHY I AM BEING SCAN" EXPLAINED TO PATIENT. NO DISTRESS NOTED, NO COMPLAIN. ALL PO MEDS ADMINISTERED W/O DIFFICULTY SWALLOWING, LEVAQIN IVPB INFUSING TO RFA. CONT TO MONITOR.
--- NOTE | 2019-01-19 11:30 | NUR ---
PATIENT BACK FROM CT VIA BED, AWAKEN, NO COMPLAIN. BS 64 ASYMPTOMATIC. APPLE JUICE GIVEN, CONT TO MONITOR. CAREGIVER REMAIN AT BEDSIDE, CALL LIGHT IN REACH.
--- NOTE | 2019-01-19 12:50 | NUR ---
PATIENT SAT UP IN BED CAREGIVER ASSISTING PATIENT WITH LUNCH, CHECK BS 78, CONT TO MONITOR. FAMILY MEMBERS REMAIN AT BEDSIDE.
--- NOTE | 2019-01-19 13:50 | NUR ---
PATIENT RESTING IN BED CALM, FORGETFUL. DR. SILVA CAME IN TO SEE PATIENT PATIENT STATED SLEEPING BETTER. SEROQUEL PO ADMINISTERED, NO PROBLEM. DRESSING TO RFA IV SITE CHANGED DUE TO OLD BLOOD STAIN PATIENT GOT BOTHER BY IT. PT'S AND CAREGIVER REMAIN AT BEDSIDE.
--- NOTE | 2019-01-19 15:02 | NUR ---
SPOKE TO CAREGIVER AT BEDSIDE PER CAREGIVER SWITCH OUT AT 5PM WITH OTHER CAREGIVER, DISCUSS TO DTChristina VILLALPANDO. MOBILE UI DEVELOPER AT BEDSIDE PROVIDE BRITT CARE. PT PATRICIO WILL WORK WITH PATIENT, UPDATE CT LT HIP NO FRACTURE OR DISLOCATION NOTED.
[2019-01-19 16:50] VITALS: BP 149/56
--- NOTE | 2019-01-19 18:36 | NUR ---
INCONTINENT CARE PROVIDED, Z-GUARD APPLIED TO PERIANEAL AREA. REPOSITION. BILAT HEEL FLOATED. FAMILY MEMBERS BACK TO ROOM. CONT TO MONITOR.
--- NOTE | 2019-01-19 19:30 | NUR ---
RECEIVED PT FROM DAY SHIFT RN. PT AAOX4 AT THIS TIME. PT SEEMS FORGETFUL AT TIMES. DENIES ARREDONDO/DIZZINESS. BREATHING EVEN AND UNLABORED ON RA, NO SOB NOTED. TELE #6 SR HR 66. PT DENIES CHEST PAIN/PRESSURE. ABD SOFT/ROUND ACTIVE BOWEL SOUNDS. DENIES ABD PAIN/N/V. IV LFA PATENT, INFUSING WELL. SEE SKIN ASSESSMENT. CONTACT ISOLATION. FAMILY AT BEDSIDE. CALL BUTTON WITHIN REACH. SAFETY PRECAUTIONS IN PLACE. WILL CONTINUE TO MONITOR.
[2019-01-19 19:36] VITALS: BP 127/62
--- NOTE | 2019-01-20 | NUR ---
PT AWAKE DENIES ANY PAIN NO SIGNS OF DISTRESS. BREATHING EVEN AND UNLABORED. CAREGIVER AT BEDSIDE, CALL BUTTON WITHIN REACH. SAFETY PRECAUTIONS IN PLACE. WILL CONTINUE TO MONITOR.
--- NOTE | 2019-01-20 03:30 | NUR ---
PT RESTING. BREATHING EVEN AND UNLABORED. NO SIGNS OF DISTRESS NOTED. CALL BUTTON WITHIN REACH. SAFETY PRECAUTIONS IN PLACE. WILL CONTINUE TO MONITOR.
[2019-01-20 04:19] VITALS: BP 132/61
--- NOTE | 2019-01-20 04:55 | NUR ---
PT SLEPT MOST OF THE NIGHT WITH NO SIGNS OF DISTRESS NOTED. PT BREATHING EVEN AND UNLABORED ON RA, NO SOB NOTED. PT IV PATENT, INFUSING WELL. NO SIGNS OF INFILTRATION. TURN AND REPOSITIONED EVERY 2HRS AND NEEDED. CAREGIVER AT BEDSIDE. PT DENIES ANY PAIN/DISCOMFORT. MEDICATED PER EMAR. CALL BUTTON WITHIN REACH. SAFETY PRECAUTIONS IN PLACE. CONTACT ISOLATION. WILL CONTINUE TO MONITOR AND ENDORSE CARE TO DAY SHIFT RN.
[2019-01-20 06:13] LABS: BASOPHIL % 0.4 % (0-2); PLATELET COUNT 199 x10^3mcL (130-400)
[2019-01-20 06:14] LABS: RED CELL DISTRIBUTION WIDTH 16.4 % (11.5-14.5)
[2019-01-20 06:20] LABS: CALCIUM 8.6 mg/dL (8.5-10.1); CARBON DIOXIDE 24.7 mmol/L (21-32); CHLORIDE SERUM 110 mmol/L (98-107); GLUCOSE SERUM 90 mg/dL (74-106); MAGNESIUM 1.6 mg/dL (1.8-2.4); PHOSPHOROUS 3.4 mg/dL (2.5-4.9); POTASSIUM SERUM 4.1 mmol/L (3.5-5.1); SODIUM SERUM 143 mmol/L (136-145)
--- NOTE | 2019-01-20 07:15 | NUR ---
RECEIVED PT FROM WATCH BAND ASSEMBLER. PT AWAKE, ALERT. A/OX3 WITH CONFUSION NOTED. PT ON ROOM AIR WITH NO RESP DISTRESS NOTED. PT ON TELE 6, DENIES CHEST PAIN AT THIS TIME. IV ACCESS LFA, CDI INFUSING NS AT 50ML/HR. PERIPHERAL PULSES PALPABLE, NO EDEMA NOTED AT THIS TIME. ACTIVE BS NOTED, PT DENIES ISSUES WITH ELIMINATION. SAFETY MEASURES IN PLACE, BED ALARM ON. BED LOW AND LOCKED. CALL LIGHT WITHIN REACH.
--- NOTE | 2019-01-20 07:23 | NUR ---
PT RESTING, DENIES PAIN. NO SIGNS OF DISTRESS NOTED. ENDORSED CARE TO DAY SHIFT RN, ALL QUESTIONS ADDRESSED.
[2019-01-20 08:53] VITALS: BP 114/53
--- NOTE | 2019-01-20 11:08 | NUR ---
PT MAGNESIUM 1.6, DR CORRALES AWARE
--- NOTE | 2019-01-20 11:53 | NUR ---
PT REPOSITIONED ONTO RIGHT SIDE TO RELIEVE PRESSURE ON SACRAL AREA. HEELS OFFLOADED ON PILLOWS. CAREGIVER AT BEDSIDE. SAFETY MEASURES MAINTAINED.
[2019-01-20 13:25] VITALS: BP 114/52
--- NOTE | 2019-01-20 14:05 | NUR ---
PT CLEANED AND REPOSITIONED WITH CAREGIVER AT BEDSIDE. DUE MEDICATIONS ADMINISTERED. PT TOLERATED WELL. FAMILY AT BEDSIDE. SAFETY MEASURES MAINTAINED.
--- NOTE | 2019-01-20 14:30 | NUR ---
NEW IV STARTED TO RIGHT HAND 20G. PT TOLERATED WELL. OLD IV LEAKING, REMOVED WITH CATHETER INTACT. FAMILY AT BEDSIDE. SAFETY MAINTAINED.
--- NOTE | 2019-01-20 15:01 | NUR ---
PHYSICAL THERAPY DAILY NOTES CO-SIGN All documentation done by the Eggs Inspector for 01/19/19 has been reviewed. I agree with the documentation. Reviewed/Co-Signed by: Candelaria Tran PT Documentation Done by:PATRICIO FUNG PTA
--- NOTE | 2019-01-20 15:17 | NUR ---
PT COMPLAINING OF PAIN WITH MOVEMENT. PT FAMILY ASKING FOR PAIN RELIEF. PT STATED SHE JUST WANTS TYLENOL AT THIS TIME. MED ADMINISTERED ORDERED PRN. WILL CONT TO MONITOR.
[2019-01-20] MEDS ORDERED: TRA50 PO (16:21)
[2019-01-20] MEDS ORDERED: QUETIAPINE FUMA25 M1 PO ×2 (16:21)
[2019-01-20] MEDS ORDERED: ATI2I IV (16:21)
[2019-01-20] MEDS ORDERED: LEVAQUIN750 MG PO (16:25)
--- NOTE | 2019-01-20 17:32 | NUR ---
PT SHOWING AGITATION, AGREEABLE TO ATIVAN AT THIS TIME. MED ADMINISTERED ORDERED. WILL MONITOR.
--- NOTE | 2019-01-20 18:33 | NUR ---
SPOKE TO DAUGHTER REGARDING TRANSFER TO [facility]. RECEIVED TELEPHONE CONSENT WITH SECOND RN FOR TRANSFER ACKNOWLEDGEMENT.
--- NOTE | 2019-01-20 18:47 | NUR ---
CALLED [facility] GAVE REPORT TO ANN. WADDELL GOING TO ROOM 25.
[2019-01-20 18:49] VITALS: BP 114/52
--- NOTE | 2019-01-20 19:41 | NUR ---
ALL NEEDS TENDED TO THROUGHOUT SHIFT. PT CARE ENDORSED TO ASSOCIATE STORE MANAGER.
--- NOTE | 2019-01-20 20:00 | NUR ---
[employer] IS HERE, REPORT GIVEN, PT IS NOT IN DISTRESS. ALL BELONGINGS SENT WITH PT.
== END 2019-01-20 20:00 | DRG 85 ==
LOC: ED 11:53 → DU 18:41 → MU 18:41 → DU 22:50
PROVIDERS: Specialist; ADMIT Family Medicine
DX: S06.5X0A Traumatic subdural hemorrhage without loss of consciousness, initial encounter (principal); G93.41 Metabolic encephalopathy; N39.0 Urinary tract infection, site not specified; F03.91 Unspecified dementia, unspecified severity, with behavioral disturbance; F05 Delirium due to known physiological condition; E44.1 Mild protein-calorie malnutrition; M25.551 Pain in right hip; M51.34 Other intervertebral disc degeneration, thoracic region; M51.36 Other intervertebral disc degeneration, lumbar region; M16.12 Unilateral primary osteoarthritis, left hip; F41.8 Other specified anxiety disorders; E11.9 Type 2 diabetes mellitus without complications; I10 Essential (primary) hypertension; Z79.84 Long term (current) use of oral hypoglycemic drugs; Z91.81 History of falling; Z74.01 Bed confinement status; Z96.641 Presence of right artificial hip joint; Z68.22 Body mass index [BMI] 22.0-22.9, adult; W06.XXXA Fall from bed, initial encounter; Y92.003 Bedroom of unspecified non-institutional (private) residence as the place of occurrence of the external cause
CPT/HCPCS: 72072; 82962; 83880; 84439; 97110-GP; 97112-GP; 97530-GP; G0378; J1630; J1885; J1956; J2060; J3490; J7030